=== PATIENT | female | born 1970 | race American Indian/Alaskan Native ===

== ENCOUNTER 2018-12-30 07:06 | Emergency (ER) | payer OTHER, BC ==
[2018-12-30 07:39] VITALS: RESP 18
[2018-12-30] MEDS ORDERED: Tetanus/Diphtheria Toxoids 0.5 ml Syringe IM ONE ×2 (08:14→09:05)
[2018-12-30] MEDS ORDERED: Emtricitabine-Tenofovir 200 mg-300 mg Tab PO STA (08:17)
--- NOTE | 2018-12-30 08:28 | ED PDOC ---
HPI: General Adult Time Seen by Provider: 12/30/18 07:27 Chief Complaint (Nursing): Needle Stick Chief Complaint (Provider): Needle stick History Per: Patient History/Exam Limitations: no limitations Onset/Duration Of Symptoms: Mins Have you had recent travel within the past 21 days to any of the following c ountries: [place], [place], [place] or [place]?: No Additional History Per: Patient Additional Complaint(s): 48yo female, otherwise well, comes to ER for evaluation after she was stuck by an exposed needle. 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 Patient reports pain to the site, but otherwise denies any other complaints. Patient unsure of her tetanus vaccine status. PMD: None provided Past Medical History Reviewed: Historical Data, Nursing Documentation, Vital Signs Vital Signs: Last Vital Signs Temp 98.3 F 12/30/18 07:17 Pulse 89 12/30/18 07:17 Resp 18 12/30/18 07:17 BP 135/78 12/30/18 07:17 Pulse Ox 98 12/30/18 07:17 Primary Care Provider: FAMILY PROVIDER,NO - Medical History PMH: No Chronic Diseases - Surgical History Surgical History: No Surg Hx - Family History Family History: States: No Known Family Hx - Home Medications Home Medications: Ambulatory Orders Medication Instructions Recorded Sulfamethoxazole/Trimethoprim 1 tab PO BID #10 tab 12/30/18 [Bactrim DS 800 mg-160 mg] - Allergies Allergies/Adverse Reactions: Allergies Allergy/AdvReac Type Severity Reaction Status Date / Time No Known Allergies Allergy Verified 12/30/18 07:40 Review of Systems Skin: Positive for: Other (needle stick) Physical Exam - Reviewed Nursing Documentation Reviewed: Yes Vital Signs Reviewed: Yes - Physical Exam Appears: Positive for: Non-toxic, No Acute Distress Head Exam: Positive for: ATRAUMATIC, NORMAL INSPECTION, NORMOCEPHALIC Skin: Positive for: Normal Color Eye Exam: Positive for: Normal appearance Cardiovascular/Chest: Positive for: Regular Rate, Rhythm. Negative for: Tachycardia Respiratory: Positive for: Normal Breath Sounds. Negative for: Respiratory D istress Extremity: Positive for: Normal ROM, Other (needle stick injury to right forearm, no bleeding. mild surrounding tenderness.) Neurological/Psych: Positive for: Awake, Alert, Normal Tone - Laboratory Results Result Diagrams: 12/30/18 08:17 12/30/18 08:17 - ECG O2 Sat by Pulse Oximetry: 98 (RA) Pulse Ox Interpretation: Normal Medical Decision Making Medical Decision [place] female with needle stick Plan: -- Labs -- Tetanus booster [address] Cabral, who states patient should take Truvada and Tivicay once daily for 4 weeks. Plan of care discussed with patient, who is agreeable UDip reviewed, patient with UTI Urinalysis sent. 0920 CBC and CMP reviewed, within normal limits 0950 Patient given first dose of Bactrim in ER Patient stable for discharge home, instructed to take all medications as prescribed Informed to follow up with PMD in 2-3 days. return precautions given. ScribeAttestation: Documented byEsthela Davidson acting as a scribe for Latia Johnson MD. Provider ScribeAttestation: All medical record entries made by the Scribe were at my direction and personally dictated by me. I have reviewed the chart and agree that the record accurately reflects my personal performance of the history, physical exam, medical decision making, and the department course for this patient. I have also personally directed, reviewed, and agree with the discharge instructions and disposition. Disposition - Clinical Impression Clinical Impression: UTI (urinary tract infection), Needle stick injury - Disposition Disposition: Routine/Home Disposition Time: 09:51 Condition: STABLE Additional Instructions: FOLLOW-UP WITH [facility]WKINS WITHIN 2 DAYS FOR REEVALUATION. Prescriptions: Sulfamethoxazole/Trimethoprim [Bactrim DS 800 mg-160 mg] 1 tab PO BID #10 tab Instructions: Urinary Tract Infections in Adults, Wound Care Forms: [facility] ([place]ian)
[2018-12-30 08:35] LABS: BASO # 0.1 K/uL (0.0-0.2); BASO % 0.9 % (0.0-2.0); EOS # 0.1 K/uL (0.0-0.7); EOS % 1.1 % (0.0-4.0); HEMOGLOBIN 12.6 g/dL (12.0-16.0); LYMPH # 2.1 K/uL (1.0-4.3); LYMPH % 36.3 % (20.0-40.0); MEAN CELL VOLUME 89.7 fl (81.0-99.0); MEAN CORPUSCULAR HEMOGLOBIN 29.6 pg (27.0-31.0); MEAN PLATELET VOLUME 8.5 fl (7.2-11.7); MONO # 0.6 K/uL (0.0-0.8); MONO % 9.6 % (0.0-10.0); NEUT % 52.1 % (50.0-75.0); NRBC % 0.1 % (0.0-0.0); RBC 4.25 Mil/uL (3.80-5.20); RED CELL DISTRIBUTION WIDTH 12.8 % (11.5-14.5); WHITE BLOOD COUNT 5.8 K/uL (4.8-10.8)
[2018-12-30 09:00] LABS: ALB/GLOB RATIO 1.3 (1.0-2.1); ALBUMIN 4.3 g/dL (3.5-5.0); ALT/SGPT 20 U/L (9-52); AMYLASE 93 U/L (30-110); AST/SGOT 25 U/L (14-36); BLOOD UREA NITROGEN 6 mg/dl (7-17); CALCIUM 8.4 mg/dL (8.4-10.2); GFR NON-AFRICAN AMERICAN > 60
[2018-12-30 09:02] LABS: SQUAMOUS EPITHIAL 4 /hpf (0-5); URINE BILIRUBIN NEGATIVE (NEGATIVE); URINE BLOOD SMALL (NEGATIVE); URINE CLARITY SLIGHTY-CLOUDY (Clear); URINE COLOR YELLOW (YELLOW); URINE GLUCOSE (UA) NEG (NEGATIVE); URINE LEUKOCYTE ESTERASE TRACE Leu/uL (Negative); URINE PROTEIN NEGATIVE (NEGATIVE); URINE UROBILINOGEN 0.2-1.0 mg/dL (0.2-1.0)
[2018-12-30 09:25] LABS: URINE BACTERIA MOD (<OCC)
[2018-12-30] MEDS ORDERED: Tmp-Smz 800 mg-160 mg DS Tab PO STA (09:33)
[2018-12-30] MEDS ORDERED: Tdap Vaccine 0.5 ml Vial (10-64 yrs) IM ONE (09:46)
[2018-12-30] MEDS ORDERED: Tmp-Smz 800 mg-160 mg DS Tab ONE (09:52)
[2018-12-30 10:00] VITALS: BP 144/77; PULSE 62; TEMP 98.6; O2SAT 100
[2018-12-30 17:33] LABS: HEPATITIS B SURFACE AG Negative (NEGATIVE)
[2018-12-30 17:38] LABS: HEPATITIS A IGM NEGATIVE (NEGATIVE)
[2018-12-30 17:40] LABS: HEPATITIS B CORE AB NEGATIVE (NEGATIVE)
[2018-12-30 17:50] LABS: HEPATITIS C ANTIBODY NEGATIVE (NEGATIVE)
== END 2018-12-30 10:02 | disposition home or self-care (01) ==
LOC: H.ER 07:06
DX: N39.0 Urinary tract infection, site not specified (principal); Z77.21 Contact with and (suspected) exposure to potentially hazardous body fluids; W46.0XXA Contact with hypodermic needle, initial encounter; Y99.0 Civilian activity done for income or pay; Z23 Encounter for immunization